=== PATIENT | male | born 1940 | race African-American/Black ===

== ENCOUNTER 2016-10-20 08:00 | Outpatient (CLI) | payer OTHER ==
[2016-10-20 09:34] LABS: eGFR (African) 28; eGFR (Non-African) 23
== END 2016-10-20 08:03 ==
LOC: LAB 08:00
PROVIDERS: ATTEND Internal Medicine Cardiovascular Disease
DX: I50.22 Chronic systolic (congestive) heart failure (principal)
CPT/HCPCS: 36415; 80048

== ENCOUNTER 2018-11-30 14:45 | Emergency (ER) | payer OTHER ==
[2018-11-30] MEDS ORDERED: MIDAZOLAM HCL 5 MG/5 ML VIAL ONE (17:39)
[2018-11-30] MEDS ORDERED: LACTATED RINGERS 1,000 ML IV.SOLN IV ONE (17:39)
[2018-11-30] MEDS ORDERED: EPINEPHrine 0.1 MG/ML DISP.SYRIN IVP ONE (17:39)
[2018-12-16 15:29] LABS: BASOPHILS % 0.5 % (0.0-1.5); eGFR (Non-African) 26
--- NOTE | 2018-12-26 10:44 | Diagnostic Imaging Report ---
PETER GARRETT [facility] [id number] [facility] [address] [place], [place]. [address] Report Submission Date: Nov 30, 2018 3:34:07 PM CDT Patient Study Name: DAVID BUNN Date: Nov 30, 2018 2:42:05 PM CDT Modality Type: DX Gender: M Description: CHEST 1VIEW : 36 Institution: [facility] Physician: PETER GARRETT Exam: AP chest. History: Tube placement. No previous studies are available for comparison. An endotracheal tube is in position with tip 2 cm above the syed. A nasogastric tube crosses the left hemidiaphragm. Pulmonary edema is noted. No right-sided effusion is seen. Heart size is within normal limits. Impression: Pulmonary edema. Electronically signed on Nov 30, 2018 3:34:07 PM CDT by: Dashawn MOSES
== END 2018-11-30 16:10 ==
LOC: ED 14:45
DX: I46.9 Cardiac arrest, cause unspecified (principal)
CPT/HCPCS: 31500; 36415; 36600; 51702; 71045; 80053; 82550; 82553; 82803; 83880; 84484; 85025; 92950; 93005; 96374; 99285; J0171; J2250; J7120; S1016